=== PATIENT | male | born 1955 | race Caucasian/White ===

== ENCOUNTER 2018-09-07 15:57 | Emergency (ER) | payer MEDICAID, OTHER ==
--- NOTE | 2018-09-07 16:33 | EDM.PDOC ---
ED HPI GENERAL MEDICAL PROBLEM - General Chief Complaint: General Stated Complaint: right rib pain Time Seen by Provider: 09/07/18 16:15 Source of Information: Reports: Patient History Limitations: Reports: No Limitations - History of Present Illness INITIAL COMMENTS - FREE TEXT/NARRATIVE: According to patient he claims he slipped and fell on the ice, his right elbow got pinched between ground and his right lower chest and felt some pain in his right lower chest and the tip of the right elbow. Patient claims pain resolved and her went to sleep after his breakfast. Woke up, had his lunch, took 2 alleve and went noam to sleep again. When patient rolled in bed he felt some crackles in his right lower chest, and since then has pain in the right lower chest and spasms. Hence he did come into be seen. No pain with deep breathing. No abdominal pain or distension. No fever or chills no cough. Pain only elicited by twisting his lower chest or pushing over the lower chest. No other injuries. Onset: Today Onset Date: 09/07/18 Onset Time: 09:00 Duration: Intermittent, Waxing/Waning Location: Reports: Chest Quality: Reports: Ache Severity: Moderate Improves with: Reports: None Worsens with: Reports: None Associated Symptoms: Denies: Confusion, Chest Pain, Cough, Diaphoresis, Fever/ Chills, Headaches, Nausea/Vomiting, Rash, Seizure, Shortness of Breath, Weakness - Related Data Allergies Allergy/AdvReac Type Severity Reaction Status Date / Time Sulfa (Sulfonamide Allergy Rash Verified 09/07/18 16:18 Antibiotics) Home Meds: Home Meds Aspirin [Halfprin] 81 mg PO DAILY 09/07/18 [History] Divalproex Sodium [Divalproex Sodium ER] 1,500 mg PO BEDTIME 09/07/18 [History] Insulin Aspart [NovoLOG] 11 unit SUBCUT WITHMEALSANDBED 09/07/18 [History] Insulin Glarg,Human.Rec.Analog [Lantus Solostar] 29 units SUBCUT BEDTIME [History] atorvaSTATin [Lipitor] 20 mg PO DAILY 09/07/18 [History] glipiZIDE [Glipizide ER] 10 mg PO WITHBREAKFAST 09/07/18 [History] glipiZIDE [Glipizide ER] 20 mg PO WITHDINNER 09/07/18 [History] metFORMIN [Glucophage] 1,000 mg PO WITHDINNER 09/07/18 [History] metFORMIN [Glucophage] 500 mg PO WITHBREAKFAST 09/07/18 [History] ED ROS GENERAL - Review of Systems Review Of Systems: See Below Constitutional: Denies: Fever, Chills HEENT: Denies: Rhinitis, Throat Pain, Throat Swelling Respiratory: Denies: Shortness of Breath, Wheezing, Pleuritic Chest Pain, Cough , Sputum Cardiovascular: Denies: Chest Pain, Lightheadedness GI/Abdominal: Reports: Flatus. Denies: Abdominal Pain, Constipation, Diarrhea, Distension, Nausea, Vomiting : Denies: Flank Pain, Frequency Musculoskeletal: Denies: Joint Pain, Joint Swelling ED EXAM, GENERAL - Physical Exam Exam: See Below Exam Limited By: No Limitations General Appearance: Alert, WD/WN, No Apparent Distress Eye Exam: Bilateral Eye: EOMI, PERRL Ears: Normal External Exam, Normal Canal, Hearing Grossly Normal, Normal TMs Ear Exam: Bilateral Ear: Auricle Normal, Canal Normal, TM normal Nose: Normal Inspection, Normal Mucosa, No Blood Throat/Mouth: Normal Inspection, Normal Lips, Normal Teeth, Normal Gums, Normal Oropharynx, Normal Voice, No Airway Compromise Head: Atraumatic, Normocephalic Neck: Normal Inspection, Supple, Non-Tender, Full Range of Motion Respiratory/Chest: No Respiratory Distress, Lungs Clear, Normal Breath Sounds, No Accessory Muscle Use, Other (Pt is tender over the right lower ribs, more along the costal margin. No hepatic tenderness or abdominal wall pain. No crepitus felt) Cardiovascular: Normal Peripheral Pulses, Regular Rate, Rhythm, No Edema, No Gallop, No JVD, No Murmur, No Rub Back Exam: Normal Inspection, Full Range of Motion, NT Extremities: Normal Range of Motion, Non-Tender, No Pedal Edema, Normal Capillary Refill, Other (right elbow: there is minimal swelling over the olecranon process. mild tendeness to pressure. Good ROM of the elbow. No brusing noted.) Course - Vital Signs Text/Narrative:: Pt's right rib series- appears normal. Pt reassured that he does not have rib fractures. He has strained the lower chest costochondral junction. He does not have pain with breathing. It is more of localize tenderness s along the costal margin. The crepitus he felt might be related to the cartilage movement. He did receive toradol 30mg IM. Also his right elbow exam is normal other than mild tenderness over olecranon process. he does have good ROM. Pain should improve with time. Pt reassured. Advised Aleve OTC 2 tablet twice daily with food. Intermittent cold for 24 hrs followed by heat and cold. Pain should gradually improve. Followup with primary care provider if not better in 5-7 days. - Orders/Labs/Meds Orders: Active Orders 24 hr Category Date Time Status Ribs 2V w Chest Rt [CR] Stat Exams 09/07/18 16:27 Ordered Meds: Medications Discontinued Medications Generic Name Dose Route Start Last Admin Trade Name Genie PRN Reason Stop Dose Admin Ketorolac Tromethamine Confirm 09/07/18 16:38 Toradol Administered 09/07/18 16:39 Dose 60 mg .ROUTE .STK-MED ONE Departure - Departure Time of Disposition: 16:50 Disposition: Home, Self-Care 01 Condition: Fair Clinical Impression: Right-sided chest wall pain, Right elbow pain - Discharge Information *PRESCRIPTION DRUG MONITORING PROGRAM REVIEWED*: Not Applicable *COPY OF PRESCRIPTION DRUG MONITORING REPORT IN PATIENT SAVAGE: Not Applicable Referrals: PCP,None [Primary Care Provider] - Forms: ED Department Discharge Additional Instructions: Pt's right rib series- appears normal. Pt reassured that he does not have rib fractures. He has strained the lower chest costochondral junction. He does not have pain with breathing. It is more of localize tenderness s along the costal margin. The crepitus he felt might be related to the cartilage movement. He did receive toradol 30mg IM. Also his right elbow exam is normal other than mild tenderness over olecranon process. he does have good ROM. Pain should improve with time. Pt reassured. Advised Aleve OTC 2 tablet twice daily with food. Intermittent cold for 24 hrs followed by heat and cold. Pain should gradually improve. Followup with primary care provider if not better in 5-7 days. - Problem List & Annotations (1) Right elbow pain SNOMED Code(s): 55866929 Code(s): M25.521 - PAIN IN RIGHT ELBOW Status: Acute Current Visit: Yes (2) Right-sided chest wall pain SNOMED Code(s): 175286938, 004504134 Code(s): R07.89 - OTHER CHEST PAIN Status: Acute Current Visit: Yes - Problem List Review Problem List Initiated/Reviewed/Updated: Yes - My Orders Last 24 Hours: My Active Orders 09/07/18 16:27 Ribs 2V w Chest Rt [CR] Stat - Assessment/Plan Last 24 Hours: My Active Orders 09/07/18 16:27 Ribs 2V w Chest Rt [CR] Stat Assessment:: right sided chest wall pain right elbow pain Plan: Pt's right rib series- appears normal. Pt reassured that he does not have rib fractures. He has strained the lower chest costochondral junction. He does not have pain with breathing. It is more of localize tenderness s along the costal margin. The crepitus he felt might be related to the cartilage movement. He did receive toradol 30mg IM. Also his right elbow exam is normal other than mild tenderness over olecranon process. he does have good ROM. Pain should improve with time. Pt reassured. Advised Aleve OTC 2 tablet twice daily with food. Intermittent cold for 24 hrs followed by heat and cold. Pain should gradually improve. Followup with primary care provider if not better in 5-7 days.
[2018-09-07] MEDS ORDERED: Ketorolac 60 MG/2 ML SDV ONE (16:38)
[2018-09-07] MEDS ORDERED: Ketorolac 30 MG/ML SDV IM ONE (16:46)
--- NOTE | 2018-09-08 05:30 | CR ---
DATE OF SERVICE: 09/07/18 CLINICAL DATA: Fall and Rt chest pain. PA CHEST AND RIGHT RIBS: The heart size is normal. The lungs appear clear. No pneumothorax. No pleural effusions. There is degenerative disk disease throughout the thoracic spine. No displaced right rib fractures. No other significant findings. [id number] [facility]
== END 2018-09-07 16:55 | disposition home or self-care (01) ==
LOC: EDBD 15:57 → LB.ED 15:57
DX: R07.89 Other chest pain (principal); M25.521 Pain in right elbow; Z79.899 Other long term (current) drug therapy; Z79.4 Long term (current) use of insulin; Z79.84 Long term (current) use of oral hypoglycemic drugs; Z88.2 Allergy status to sulfonamides; W00.0XXA Fall on same level due to ice and snow, initial encounter
CPT/HCPCS: 71101-RT; 96372; 99283-25; J1885